=== PATIENT | female | born 1930 | race Two or more races ===

== ENCOUNTER 2017-09-07 16:26 | Inpatient (IN) | payer OTHER ==
[~2017-09-07] VITALS: Ht 160 cm; Wt 136.1 kg
[~2017-09-07 16:26] MED LIST: ARICEPT10 MG; CARDURA8 MG PO; COREG CR10 MG; DIOVAN HCT 320/1 TAB; DIOVAN320 MG PO; GEMFIBROZIL600 MG; HUMALOG100 U/M1 SQ; IMDUR30 MG; LANTUS100 U/ML SQ; LASIX20 MG; LASIX40 MG PO; LIPITOR20 MG PO; NEURONTIN300 MG; NEURONTIN300 MG PO; PROSCAR5 MG; SIMVASTATIN10 MG; SYNTHROID50 MCG; VERAPAMIL ER120 MG; ZANTAC300 MG
[2017-09-20] MEDS ORDERED: BACID CAPLET1 EACH PO (14:21)
[2017-09-20] MEDS ORDERED: ASMANEX220 MC2 IH (14:21)
[2017-09-20] MEDS ORDERED: FLUCONAZOLE150 MG PO (14:21)
[2017-09-20] MEDS ORDERED: DIOVAN320 MG PO (14:21)
[2017-09-20] MEDS ORDERED: GABAPENTIN800 MG PO (14:21)
[2017-09-20] MEDS ORDERED: Lipitor PO (14:21)
[2017-09-20] MEDS ORDERED: BUMETANIDE1 MG PO (14:21)
[2017-09-20] MEDS ORDERED: MONTELUKAST SOD10 MG PO (14:21)
[2017-09-20] MEDS ORDERED: Lantus 1000 UNITS/10 SUBCUTANEO (14:21)
[2017-09-20] MEDS ORDERED: COUMADIN4 MG PO (14:21)
[2017-09-20] MEDS ORDERED: COUMADIN2 MG PO (14:21)
[2017-09-20] MEDS ORDERED: KEPPRA500 MG PO (14:21)
[2017-09-20] MEDS ORDERED: CARdura 4MG TABLET PO (14:21)
[2017-09-20] MEDS ORDERED: NeurRONTin 400MG CAP PO (14:21)
== END 2017-09-20 16:38 | disposition home or self-care (01) | DRG 690 ==
LOC: ER 16:26 → MEDJ 09-08 18:45 → SEC-K 09-08 18:45 → MEDJ 09-09 12:36
PROC: 4A033R1 Measurement of Arterial Saturation, Peripheral, Percutaneous Approach (ICD-10-PCS; 2017-09-08)
PROC: 8E0ZXY6 Isolation (ICD-10-PCS; 2017-09-08)
PROC: 3E0F7GC Introduction of Other Therapeutic Substance into Respiratory Tract, Via Natural or Artificial Opening (ICD-10-PCS; principal; 2017-09-09)
DX: N39.0 Urinary tract infection, site not specified (principal); I13.0 Hypertensive heart and chronic kidney disease with heart failure and stage 1 through stage 4 chronic kidney disease, or unspecified chronic kidney disease; G40.89 Other seizures; J45.51 Severe persistent asthma with (acute) exacerbation; J44.1 Chronic obstructive pulmonary disease with (acute) exacerbation; I50.30 Unspecified diastolic (congestive) heart failure; B96.1 Klebsiella pneumoniae [K. pneumoniae] as the cause of diseases classified elsewhere; Z16.12 Extended spectrum beta lactamase (ESBL) resistance; E66.01 Morbid (severe) obesity due to excess calories; E11.22 Type 2 diabetes mellitus with diabetic chronic kidney disease; I48.0 Paroxysmal atrial fibrillation; Z79.01 Long term (current) use of anticoagulants; E11.42 Type 2 diabetes mellitus with diabetic polyneuropathy; I87.2 Venous insufficiency (chronic) (peripheral); I35.0 Nonrheumatic aortic (valve) stenosis; G47.33 Obstructive sleep apnea (adult) (pediatric); N18.3 Chronic kidney disease, stage 3 (moderate); R09.02 Hypoxemia; E11.51 Type 2 diabetes mellitus with diabetic peripheral angiopathy without gangrene

== ENCOUNTER 2020-07-08 21:49 | Inpatient (IN) | payer OTHER ==
[~2020-07-08] VITALS: Ht 172.7 cm; Wt 181.4 kg
[~2020-07-08 21:49] MED LIST changes: +ASMANEX220 MC2 IH; +BACID CAPLET1 EACH PO; +BUMETANIDE1 MG PO; +CARdura 4MG TABLET PO; +COUMADIN2 MG PO; +COUMADIN4 MG PO; +FLUCONAZOLE150 MG PO; +GABAPENTIN800 MG PO; +KEPPRA500 MG PO; +Lantus 1000 UNITS/10 SUBCUTANEO; +Lipitor PO; +MONTELUKAST SOD10 MG PO; +NeurRONTin 400MG CAP PO
[2020-07-09] MEDS ORDERED: KEPPRA500 MG (09:06)
[2020-07-09] MEDS ORDERED: CARDURA XL4 MG (09:06)
[2020-07-09] MEDS ORDERED: DIOVAN320 MG (09:06)
[2020-07-09] MEDS ORDERED: LASIX20 MG (09:07)
[2020-07-09] MEDS ORDERED: SINGULAIR 10MG10 MG (09:07)
[2020-07-09] MEDS ORDERED: NEURONTIN300 MG (09:07)
[2020-07-09] MEDS ORDERED: PRE PROTEIN1 EACH (09:08)
[2020-07-09] MEDS ORDERED: LIPITOR20 MG (09:08)
[2020-07-09] MEDS ORDERED: NEURONTIN800 MG (09:08)
[2020-07-09] MEDS ORDERED: COUMADIN (09:08)
[2020-07-09] MEDS ORDERED: LANTUS SOL100 UNIT/1 (09:09)
[2020-07-09] MEDS ORDERED: ASMANEX220 MC1 (09:09)
[2020-07-09] MEDS ORDERED: HUMALOG100 UNIT/2 (09:09)
== END 2020-07-10 21:30 | disposition left against medical advice (07) | DRG 177 ==
LOC: ER 21:49 → MEDJ 07-09 14:31
PROVIDERS: ADMIT Specialist; ATTEND Specialist
PROC: 4A033R1 Measurement of Arterial Saturation, Peripheral, Percutaneous Approach (ICD-10-PCS; 2020-07-08)
PROC: 8E0ZXY6 Isolation (ICD-10-PCS; principal; 2020-07-09)
PROC: 4A12X4Z Monitoring of Cardiac Electrical Activity, External Approach (ICD-10-PCS; 2020-07-09)
PROC: 3E0F7SF Introduction of Other Gas into Respiratory Tract, Via Natural or Artificial Opening (ICD-10-PCS; 2020-07-09)
DX: U07.1 COVID-19 (principal); I21.A1 Myocardial infarction type 2; I48.20 Chronic atrial fibrillation, unspecified; N39.0 Urinary tract infection, site not specified; D61.818 Other pancytopenia; E87.2 Acidosis; E66.01 Morbid (severe) obesity due to excess calories; J44.9 Chronic obstructive pulmonary disease, unspecified; Z99.81 Dependence on supplemental oxygen; E11.22 Type 2 diabetes mellitus with diabetic chronic kidney disease; I35.0 Nonrheumatic aortic (valve) stenosis; N18.9 Chronic kidney disease, unspecified; I11.0 Hypertensive heart disease with heart failure; I50.9 Heart failure, unspecified; Z79.01 Long term (current) use of anticoagulants; E11.40 Type 2 diabetes mellitus with diabetic neuropathy, unspecified; B96.89 Other specified bacterial agents as the cause of diseases classified elsewhere; G47.33 Obstructive sleep apnea (adult) (pediatric); Z53.29 Procedure and treatment not carried out because of patient's decision for other reasons; Z79.4 Long term (current) use of insulin